=== PATIENT | male | born 1950 | race Caucasian/White ===

== ENCOUNTER 2021-07-12 08:52 | Emergency (ER) | payer MEDICARE ==
[2021-07-12 10:35] LABS: HEMOGLOBIN 14.5 gm/dl (14.0-17.5); RED BLOOD COUNT 5.07 M/UL (4.20-5.50)
[2021-07-12 10:52] LABS: BUN/CREATININE RATIO 6 (0-10)
[2021-07-15] MEDS ORDERED: COZAAR 50MG TAB50 MG PO (07:29)
[2021-07-15] MEDS ORDERED: HYDROCODON-ACE1 EAC2 PO (07:30)
[2021-07-15] MEDS ORDERED: ST. JOSEPH ASPI81 M1 PO (07:30)
[2021-07-15] MEDS ORDERED: CHOLESTEROL MED PO (07:31)
[2021-07-15] MEDS ORDERED: HYDROCODON-ACE1 EAC4 PO (10:47)
[2021-07-15] MEDS ORDERED: COLACE100 MG PO (10:47)
== END 2021-07-15 12:16 | disposition home or self-care (01) ==
LOC: ER1 08:52
PROVIDERS: Emergency Medicine
DX: K40.90 Unilateral inguinal hernia, without obstruction or gangrene, not specified as recurrent (principal); E78.5 Hyperlipidemia, unspecified; I10 Essential (primary) hypertension; Z87.891 Personal history of nicotine dependence; Z79.82 Long term (current) use of aspirin
CPT/HCPCS: 80048; 81001; 83605; 85025; 99284

== ENCOUNTER → 2021-07-15 | Day surgery (SDC) | payer MEDICARE ==
[~2021-07-15] MED LIST: CHOLESTEROL MED PO; COLACE100 MG PO; COZAAR 50MG TAB50 MG PO; HYDROCODON-ACE1 EAC2 PO; HYDROCODON-ACE1 EAC4 PO; ST. JOSEPH ASPI81 M1 PO
== END | disposition home or self-care (01) ==
LOC: OR 06:35
DX: K40.90 Unilateral inguinal hernia, without obstruction or gangrene, not specified as recurrent (principal); Z87.891 Personal history of nicotine dependence; Z79.82 Long term (current) use of aspirin; Z20.822 Contact with and (suspected) exposure to COVID-19
CPT/HCPCS: C1781; J0690; J2704; J3010; J7030; J7120